=== PATIENT | female | born 1990 | race African-American/Black ===

== ENCOUNTER 2024-01-25 18:39 | Emergency (ER) | payer OTHER, SELFPAY ==
[2024-01-25 18:41] VITALS: BP 151/88
--- NOTE | 2024-01-25 18:58 | ED.GENMED ---
History of Present Illness
<Didi Centeno MD, Resident - Last Filed: 01/25/24 22:42>
General
Chief Complaint: Back Pain
Source: patient
Time Seen by Provider: 01/25/24 18:49
History of Present Illness
History of Present Illness:
This is a 33 year old female patient with PMH of asthma, HTN and pre-diabetes who presents to the ER with concerns of back pain. She states that she has been experiencing chronic mid to lower back pain for the past two years but recently in the past
two weeks, she has been having radiating pain down her bilateral lower extremities that she describes as shooting pain along with numbness. She denies any fever, chills or nausea. She admits that due to her numbness/tingling in her lower
extremities, she has been prone to falling and had tripped yesterday. She feels mild left ankle pain but is able to bear weight. She also states that she has been short of breath recently for the past month or so.
Past History
<Didi Centeno MD, Resident - Last Filed: 01/25/24 22:42>
Past History
ED Past Medical History: Asthma, HTN and Other (pre-diabetic)
ED Past Surgical History: Gynecological (tubal ligation)
Social History
Tobacco: Non-smoker
Alcohol: Occasional
Drug: None
Personal:
Review of Systems
<Didi Centeno MD, Resident - Last Filed: 01/25/24 22:42>
Review of Systems
Constitutional: Denies fever or chills
Respiratory: Reports trouble breathing; Denies cough
Cardiac: Denies palpitations
ABD/GI: Denies abdominal pain, nausea or vomiting
Neurological: Reports numbness (in lower extremities)
Phy Exam
<Didi Centeno MD, Resident - Last Filed: 01/25/24 22:42>
General Physical Exam
General Presentation: well appearing and no apparent distress
Cardiovascular Exam
Cardiovascular Exam: regular rate/rhythm and no murmur
Heart Sounds: normal
Pulmonary Exam
Pulmonary Exam: lungs clear, no respiratory distress, no crackles and no wheezing
Gastrointestinal Exam
Gastrointestinal Exam: non tender, soft and non distended
Neurological Exam
Neurological Exam: oriented x3
Musculoskeletal Exam
Musculoskeletal Exam: no edema and other (mild leftankle pain, normal muscle strength and tone in lower extremities. )
Skin Exam
Skin Exam: warm/dry
Psychiatric Exam
Psychiatric Exam: normal mood/affect
Course
<Didi Misa Centeno MD, Resident - Last Filed: 01/25/24 22:42>
Orders/Labs/Results
Orders:
Orders
01/25/24 19:52
Electrocardiogram (*1) Routine
Reason for Study: Shortness of Breath
EKG- Treatment ONCE
01/25/24 20:19
CXR2 [CR Chest - 2 Views ] Urgent
Comment:
Reason For Exam: SOB
01/25/24 20:20
CR Lumbar Spine 2 Or 3 Views Urgent
Comment:
Reason For Exam: back pain
CR Thoracic Spine 2 Views Urgent
Comment:
Reason For Exam: back pain
01/25/24 21:37
CR Ankle - Left Min 3 Views Urgent
Reason For Exam: ankle pain/fall
Vital Signs
Initial and Last Documented VS:
Initial Vital Signs
Temp Pulse Resp BP Pulse Ox
98.9 F 80 18 151/88 98
01/25/24 18:41 01/25/24 18:41 01/25/24 18:41 01/25/24 18:41 01/25/24 18:41
Last Documented Vital Signs
Temp Pulse Resp BP Pulse Ox
98.9 F 80 18 112/64 100
01/25/24 18:41 01/25/24 21:24 01/25/24 18:41 01/25/24 22:03 01/25/24 21:24
<Berny Ramirez DO - Last Filed: 01/25/24 21:37>
Orders/Labs/Results
Orders:
Orders
01/25/24 19:52
Electrocardiogram (*1) Routine
Reason for Study: Shortness of Breath
EKG- Treatment ONCE
01/25/24 20:19
CXR2 [CR Chest - 2 Views ] Urgent
Comment:
Reason For Exam: SOB
01/25/24 20:20
CR Lumbar Spine 2 Or 3 Views Urgent
Comment:
Reason For Exam: back pain
CR Thoracic Spine 2 Views Urgent
Comment:
Reason For Exam: back pain
01/25/24 21:37
CR Ankle - Left Min 3 Views Urgent
Reason For Exam: ankle pain/fall
Vital Signs
Initial and Last Documented VS:
Initial Vital Signs
Temp Pulse Resp BP Pulse Ox
98.9 F 80 18 151/88 98
01/25/24 18:41 01/25/24 18:41 01/25/24 18:41 01/25/24 18:41 01/25/24 18:41
Last Documented Vital Signs
Temp Pulse Resp BP Pulse Ox
98.9 F 80 18 112/64 100
01/25/24 18:41 01/25/24 21:24 01/25/24 18:41 01/25/24 22:03 01/25/24 21:24
<Didi Centeno MD, Resident - Last Filed: 01/25/24 22:42>
MDM/Problems Addressed
Differential Diagnosis Includes:
Disc herniation, ankle sprain, sciatica, cauda equina
MDM/Problems Addressed:
Xray of lumbar/thoracic spine, left ankle and CXR ordered. EKG ordered for SOB but showed NSR. Patient has normal muscle strength and no loss of sensation in the lower extremities. Patient is morbidly obese. She denied any urinary incontinence or
difficulty with bowel movements besides constipation. Discussed with patient about checking rectal tone to help with having a more thorough exam for cauda equina but patient declined. Xray of spine, ankle and chest with no significant findings.
Patient is stable for discharge and will send prednisone taper and rescue albuterol inhaler. Also advised to follow up with her family doctor for further outpatient care may benefit from an MRI back in outpatient.
<Berny Ramirez DO - Last Filed: 01/25/24 21:37>
*Radiology
Radiology exam reviewed: all reviewed NAD by ED Provider
*Pulse Oximetry
Patient hypoxic: no
*Critical Care Note
Total Time (30-74mins, 75-104mins- exclusive of procedures): Not Applicable
Data Reviewed
Source: patient
Further Testing Considered But Not Given:
Consider CT imaging but no follow-up plain x-ray is negative. In addition symptoms have been ongoing for some time
ED Attending Note
<Didi Centeno MD, Resident - Last Filed: 01/25/24 22:42>
-
Portions of this chart may have been created with voice recognition software.� Occasional wrong word or��sound alike� substitutions may have occurred due to the inherent limitations of voice recognition software.
<Berny Ramirez DO - Last Filed: 01/25/24 21:37>
ED Attending Note
Patient seen and examined by attending physician: Yes
I performed a history and physical exam of patient and discussed management with resident, I reviewed resident's note and agree with documented findings and plan of care.: Yes
ED Attending Note:
33-year-old female who presents with a variety of symptoms. Most notably she reports that she has had back pain as well as loss of generalized sensation in her legs. She states she is tripping because she feels like her legs are numb. She does
admit that the symptoms started as long ago as 2 years ago. She had epidurals then. She states it seemed little better and recently feels worse again over the last month. Patient states that she has had no urinary or bowel incontinence. Patient
reports some back pain when she sits. She also reports discomfort in her hips. She has seen her primary was advised seeing orthopedic spine surgeon but she has not seen them. She has not had an MRI. She had 4 epidurals 2 years ago. In addition,
the patient is felt congested and sick over the last 1 week. She has had a minor cough. She has occasionally felt short of breath. No pleuritic pain. No hemoptysis. No leg swelling. Exam: Obese. Mild midline lumbar tenderness noted. No gross
rash. Lower extremities with no clonus. DTRs are normal bilaterally at the patellar reflex. Normal motor strength bilaterally of the lower extremities. No noted bony tenderness to the left or right ankle and feet. Normal distal perfusion to the
feet. Assessment plan: Check plain films and reassess. No clinical suspicion for cauda equina syndrome as no clonus, normal DTRs. Check rectal tone for completeness. Anticipate outpatient management. Will also consider course of steroids which
may benefit her upper respiratory symptoms as well as her low back symptoms. Recommended outpatient spine follow-up as well as MRI.
Discharge Plan
Departure
Patient Disposition: Home (Routine Discharge)
Date of Disposition: 01/25/24
Time of Disposition: 22:10
Patient with high blood pressure during this ER visit?: Yes
Discharge Problem:
Back pain
Prescriptions:
New
prednisone 10 mg Tablet
See Rx Instructions .ROUTE .COMPLEX Qty: 30 0RF
Rx Instructions:
Take By Mouth:
40 mg daily x3 days, 30 mg daily x3 days,
20 mg daily x3 days, 10 mg daily x3 days.
albuterol sulfate 90 mcg/actuation aerosol powdr breath activated
2 inh inhalation Q6H PRN (Reason: shortness of breath or wheezing) Qty: 1 0RF
Rx Instructions:
Use 2 puffs every 6hrs as needed
Referrals:
Toni Bagley, DO [Non-Admitting Privileges] -
Activity Restrictions/Additional Instructions:
If experiencing symptoms such as worsening back pain, difficulty with urination or bowel movements, high grade fevers or chills please return to the ER. Take prednisone taper as directed on discharge instructions. Follow up with orthopedic and
family physician in a week for further management of back pain as MRI of your back may be needed for care.
Interventions
Interventions:
*Risk Screen - Suicide Last Done: 01/25/24 18:41
*General Assessment Last Done: 01/25/24 18:41
*Neglect/Abuse Screening Last Done: 01/25/24 18:41
ED- Fall Risk Assessment Last Done: 01/25/24 22:37
*ED COVID-19 Vaccine History Last Done: 01/25/24 18:41
*Nursing Disposition Last Done: 01/25/24 22:37
ED-Musculoskeletal Assessment Last Done: 01/25/24 22:37
Discharge Date and Time
Discharge Date/Time: 01/25/24 22:38
Print Language: INDONESIAN
[2024-01-25 21:24] VITALS: BP 150/72
[2024-01-25 22:03] VITALS: BP 112/64
== END 2024-01-25 22:38 | disposition home or self-care (01) ==
LOC: EMR 18:39
PROVIDERS: EMERGENCY PHYSICIAN Emergency Medicine
DX: M54.50 Low back pain, unspecified (principal); M54.6 Pain in thoracic spine; R06.02 Shortness of breath; R20.0 Anesthesia of skin; R20.2 Paresthesia of skin; M25.572 Pain in left ankle and joints of left foot; K59.00 Constipation, unspecified; I10 Essential (primary) hypertension; J45.909 Unspecified asthma, uncomplicated; R73.03 Prediabetes; E66.01 Morbid (severe) obesity due to excess calories; Z88.1 Allergy status to other antibiotic agents
CPT/HCPCS: 99284; 71046; 72070; 72100; 73610; 93005

== ENCOUNTER 2024-02-16 23:35 | Emergency (ER) | payer OTHER, SELFPAY ==
[2024-02-16 23:44] VITALS: BP 153/94
[2024-02-17] LABS: Hematocrit 32.9 % (37.0-47.0); Hemoglobin 10.4 g/dL (12.0-16.0); Mean Corp Hgb Conc. 31.6 g/dL (33.0-37.0); Mean Corpuscular Hgb 24.5 pg (27.0-31.0); Mean Corpuscular Volume 77.6 fL (81.0-99.0); Mean Platelet Volume 8.6 fL (7.4-10.4); Platelet Count 375 10^3/uL (130-400); Red Blood Cell Count 4.24 10^6/uL (4.20-5.40); Red Cell Dist. Width 17.2 % (11.5-14.5); White Blood Cell Count 16.4 10^3/uL (4.8-10.8)
[2024-02-17 00:16] LABS: HCG, Serum Qualitative Screen Negative
[2024-02-17 00:23] LABS: COVID-19 Antigen Negative (Negative)
[2024-02-17 00:24] LABS: Blood Urea Nitrogen 12 mg/dl (7-17); Carbon Dioxide 24 mmol/L (22-30); Chloride 104 mmol/L (98-107); Glucose 112 mg/dl (70-99); Sodium 136 mmol/L (135-145); eGFR > 60.00
[2024-02-17 00:50] VITALS: BMI 57.2
[2024-02-17] MEDS: DUONEB 3 ML INH (01:17)
--- NOTE | 2024-02-17 01:35 | ED.GENMED ---
History of Present Illness
General
Chief Complaint: Breathing Problem
Source: patient
Exam Limitations: none
Time Seen by Provider: 02/17/24 00:52
History of Present Illness
History of Present Illness:
This is a 33 year old female that comes in with c/o trouble breathing. States that she feels like she is wheezing. States that this has been going on for the past 3 days. State that she was here about 2 weeks ago with similar complaints. States that
she has numbness in her feet and was given Prednisone and a Pro-Air inhaler. State that the inhaler is not helping. States that the steroid did help some. States that she has had a cough, some nausea and diarrhea. headache and dizziness. Denies any
fever, chills, chest pain, abd pain, vomiting, urinary burning.
Past History
Past History
ED Past Medical History: Asthma, GERD, HTN and Other (pre-diabetic, Sinus infection, Anemia. )
ED Past Surgical History: Gynecological (tubal ligation)
Social History
Tobacco: Non-smoker
Alcohol: Occasional
Drug: None
Personal:
Living: with family
Review of Systems
Review of Systems
All Other Systems: ROS reviewed and negative except as documented in HPI and ROS
Constitutional: Reports no symptoms; Denies fever or chills
EENT: Reports no symptoms
Respiratory: Reports cough and trouble breathing
Cardiac: Reports no symptoms; Denies chest pain
ABD/GI: Reports nausea and diarrhea; Denies abdominal pain or vomiting
: Reports no symptoms; Denies dysuria, frequency or urgency
Musculoskeletal: Reports no symptoms
Skin: Reports no symptoms
Neurological: Reports dizzy and headache
Psychiatric: Reports no symptoms
Phy Exam
General Physical Exam
General Presentation: well appearing and no apparent distress
General age: appears stated age
General Skin: warm and dry
General Habitus: obese
General Mental: alert
General Hydration: appears well hydrated
ENT Exam
ENT Exam: TM's normal, pharynx normal and neck supple
Eye Exam
Eye Exam: EOMI
Cardiovascular Exam
Cardiovascular Exam: regular rate/rhythm, no edema, no murmur and normal peripheral pulses
Pulmonary Exam
Pulmonary Exam: lungs clear, no respiratory distress, no rales, chest non tender, no crackles, no rhonchi, no wheezing and no cough
Gastrointestinal Exam
Gastrointestinal Exam: normal bowel sounds, non tender, soft, no organomegaly, no pulsatile mass, non distended and other (Obese)
Musculoskeletal Exam
Musculoskeletal Exam: full ROM and no edema
Skin Exam
Skin Exam: normal color, warm/dry, no rash and no petechia
Psychiatric Exam
Psychiatric Exam: normal mood/affect
Course
Orders/Labs/Results
Orders:
Orders
02/16/24 23:40
Electrocardiogram (*1) Urgent
Reason for Study: Shortness of Breath
EKG- Treatment ONCE
02/16/24 23:44
Test Result ONCE
02/16/24 23:51
Basic Metabolic Panel Urgent
Complete Blood Count/No Diff Urgent
HCG, Serum Qualitative Screen Urgent
02/16/24 23:54
COVID-19 Antigen Urgent
Source: Nasal Swab
Influenza A+B Rapid Molecular Urgent
[place] Source: Nasal Swab
Specimen Description:
02/17/24 00:15
CR Chest - 2 Views Urgent
Reason For Exam: cough and shortness of breath.
02/17/24 01:02
Ipratropium/Albuterol Sulfate [Duoneb] 3 ml INH R NOW ONE
Abnormal Lab Results
02/16/24
23:51
WBC 16.4 H 10^3/uL
(4.8-10.8)
Hgb 10.4 L g/dL
(12.0-16.0)
Hct 32.9 L %
(37.0-47.0)
MCV 77.6 L fL
(81.0-99.0)
MCH 24.5 L pg
(27.0-31.0)
MCHC 31.6 L g/dL
(33.0-37.0)
RDW 17.2 H %
(11.5-14.5)
Glucose 112 H mg/dl
(70-99)
02/16/24 23:51
02/16/24 23:51
Leukocytosis, H/H low, Anemic, Glucose nonfasting. COVID and Influenza negative. HCG negative.
Vital Signs
Initial and Last Documented VS:
Initial Vital Signs
Temp Pulse Resp BP Pulse Ox
98.0 F 112 20 153/94 99
02/16/24 23:44 02/16/24 23:44 02/16/24 23:44 02/16/24 23:44 02/16/24 23:44
Last Documented Vital Signs
Temp Pulse Resp BP Pulse Ox
98.0 F 112 20 153/94 99
02/16/24 23:44 02/16/24 23:44 02/16/24 23:44 02/16/24 23:44 02/17/24 00:50
MDM/Problems Addressed
Differential Diagnosis Includes:
PNA, Viral syndrome.
MDM/Problems Addressed:
This is a 33 year old female that comes in with c/o SOB. States that she feels like she is wheezing and the inhaler that she was given is not helping. States that the steroid help some.
Will check labs, Chest x-ray give a Duo neb, COVID and Influenza.
Back into see patient. Patient states that she feels better after the duo neb. Explained that she will need to follow up with the sterilization specialist for further testing. Patient will be given an albuterol inhaler. Patient to return with any
concerns.
Chronic conditions affecting care:
Obesity
Acute Exacerbation and/or Progression of Chronic Illness:
NA
*Radiology
Radiology exam reviewed: preliminary read by ED provider (Chest- negative for active disease. )
*Pulse Oximetry
Patient hypoxic: no
*EKG
Interpreted by ED Provider?: Yes
Heart Rate: 97
Rate: normal
Rhythm: sinus
[place]: normal axis
Interval: normal interval
QRS Pattern: normal QRS
Ischemia: no ischemia
*Loan Clerk Interpretation
Rate: Loan Clerk- N/A
*Critical Care Note
Total Time (30-74mins, 75-104mins- exclusive of procedures): Not Applicable
ED Attending Note
-
Portions of this chart may have been created with voice recognition software.� Occasional wrong word or��sound alike� substitutions may have occurred due to the inherent limitations of voice recognition software.
Discharge Plan
Departure
Patient Disposition: Home (Routine Discharge)
Date of Disposition: 02/17/24
Time of Disposition: 02:10
Patient with high blood pressure during this ER visit?: Yes
Condition: Good
Covid-19: Negative COVID-19
Discharge Problem:
SOB (shortness of breath)
Instructions: Shortness of breath in adults - ED discharge instructions, BLOOD PRESSURE
Prescriptions:
New
albuterol sulfate 90 mcg/actuation HFA aerosol inhaler
2 puff inhalation Q6H PRN (Reason: shortness of breath or wheezing) Qty: 6.7 0RF
No Action
prednisone 10 mg Tablet
See Rx Instructions .ROUTE .COMPLEX Qty: 30 0RF
Rx Instructions:
Take By Mouth:
40 mg daily x3 days, 30 mg daily x3 days,
20 mg daily x3 days, 10 mg daily x3 days.
albuterol sulfate 90 mcg/actuation aerosol powdr breath activated
2 inh inhalation Q6H PRN (Reason: shortness of breath or wheezing) Qty: 1 0RF
Rx Instructions:
Use 2 puffs every 6hrs as needed
Referrals:
Ronny Duncan DO [Family Provider] - Follow up in 5-7 days
Jim Dickerson MD [Active] - Call in 1-3 days for appt
Activity Restrictions/Additional Instructions:
As discussed, your blood work shows that you are anemia. You are negative for COVID and Influenza. Your chest x-ray is normal. Please increase your water intake to 8-8oz glasses daily. Follow up with the sterilization specialist for further evaluation.
You have had a Prescription for an albuterol inhaler sent to your Pharmacy. PLEASE DO NOT USE THIS MORE THEN EVERY 4 HOURS IF NEEDED THIS CAN CAUSE REBOUND SYMPTOMS. Follow up with the family doctor for recheck. IF YOU HAVE ANY OTHER CONCERN
PLEASE RETURN TO THE EMERGENCY ROOM.
Interventions
Interventions:
*Risk Screen - Suicide Last Done: 02/16/24 23:47
*General Assessment Last Done: 02/16/24 23:47
*Neglect/Abuse Screening Last Done: 02/16/24 23:39
*ED COVID-19 Vaccine History Last Done: 02/16/24 23:39
ED- Cardiac Assessment Last Done: 02/17/24 00:48
ED- Pulmonary Assessment Last Done: 02/17/24 00:50
Discharge Date and Time
Print Language: SPANISH
[2024-02-17 02:22] VITALS: BP 147/82
== END 2024-02-17 02:25 | disposition home or self-care (01) ==
LOC: EMR 23:35
PROVIDERS: Emergency Medicine; EMERGENCY PHYSICIAN Emergency Medicine; FAMILY PHYSICIAN Family Medicine
DX: R06.02 Shortness of breath (principal); J45.909 Unspecified asthma, uncomplicated; K21.9 Gastro-esophageal reflux disease without esophagitis; I10 Essential (primary) hypertension; R73.03 Prediabetes; D64.9 Anemia, unspecified; E66.9 Obesity, unspecified; Z98.51 Tubal ligation status
CPT/HCPCS: 99283; 94640; 71046; 80048; 84703; 85027; 87502; 87811; 93005